=== PATIENT | female | born 2000 | race Two or more races ===

== ENCOUNTER 2023-08-08 17:04 | Emergency (ER) | payer OTHER ==
[~2023-08-08] VITALS: Ht 165.1 cm; Wt 86.6 kg
[2023-08-08] MEDS ORDERED: OBSTETRIX ONE CAPSUL (17:44)
[2023-08-08 18:25] LABS: HEMATOCRIT 36.2 % (36.0-45.00); HEMOGLOBIN 12.2 g/dL (12.0-15.00); MEAN CELL VOLUME 89.3 fL (80.00-100.00); MEAN CORPUSCULAR HGB CONC 33.6 g/dl (32.0-36.0); PLATELET COUNT 241 K/uL (150-450); RED BLOOD COUNT 4.05 M/uL (4.00-6.00); RED CELL DISTRIBUTION WIDTH 13.9 % (11.5-14.5)
[2023-08-08 18:44] LABS: CALCIUM 9.1 mg/dL (8.5-10.1); CREATININE SERUM 0.56 mg/dL (0.55-1.02); GFR 135.37; POTASSIUM 3.69 mEq/L (3.5-5.1)
[2023-08-08 21:45] LABS: URINE APPEARANCE Clear; URINE BILIRRUBIN Negative (NEGATIVE); URINE BLOOD Negative; URINE COLOR Yellow; URINE GLUCOSE Negative (NEGATIVE); URINE LEUKOCYTE Moderate; URINE NITRATE Negative; URINE PROTEIN Negative (NEGATIVE); URINE UROBILINOGEN 0.2 E.U./dl
[2023-08-08 21:49] LABS: URINE BACTERIA 1049.4 uL (0.0-1933); URINE WBC 99.2 uL (0.0-23.2)
[2023-08-08 21:52] LABS: URINE RBC 0.1 uL (0.0-20.8)
[2023-08-08] MEDS ORDERED: DUI500 PO (22:23)
== END 2023-08-08 22:27 | disposition home or self-care (01) ==
LOC: ER 17:04
PROVIDERS: General Practice
DX: O23.42 Unspecified infection of urinary tract in pregnancy, second trimester (principal); N39.0 Urinary tract infection, site not specified; Z3A.18 18 weeks gestation of pregnancy; Z88.8 Allergy status to other drugs, medicaments and biological substances

== ENCOUNTER 2023-10-11 19:24 | Outpatient (CLI) | payer OTHER ==
[~2023-10-11 19:24] MED LIST: DUI500 PO; OBSTETRIX ONE CAPSUL
== END 2023-10-11 19:42 | disposition home or self-care (01) ==
LOC: OBS/DEL 19:24
PROVIDERS: ATTEND Obstetrics & Gynecology
DX: O26.892 Other specified pregnancy related conditions, second trimester (principal); R10.2 Pelvic and perineal pain; Z3A.26 26 weeks gestation of pregnancy; Z88.5 Allergy status to narcotic agent

== ENCOUNTER 2023-10-29 02:36 | Outpatient (CLI) | payer OTHER ==
[2023-10-29 03:03] LABS: URINE APPEARANCE Clear; URINE BILIRRUBIN Negative (NEGATIVE); URINE BLOOD Small; URINE COLOR Yellow; URINE GLUCOSE Negative (NEGATIVE); URINE LEUKOCYTE Small; URINE NITRATE Negative; URINE PROTEIN 30 (NEGATIVE)
[2023-10-29 03:04] LABS: HEMATOCRIT 34.4 % (36.0-45.00); HEMOGLOBIN 11.6 g/dL (12.0-15.00); MEAN CORPUSCULAR HEMOGLOBIN 30.2 pg (27.00-32.0); MEAN CORPUSCULAR HGB CONC 33.9 g/dl (32.0-36.0); PLATELET COUNT 235 K/uL (150-450); RED BLOOD COUNT 3.86 M/uL (4.00-6.00); RED CELL DISTRIBUTION WIDTH 12.9 % (11.5-14.5)
[2023-10-29 03:07] LABS: URINE EPITHELIAL CELLS 44.2 uL (0.0-38.8); URINE RBC 92.4 uL (0.0-20.8); URINE WBC 90.8 uL (0.0-23.2)
[2023-10-29] MEDS ORDERED: PRENATAL TABLE1 EAC1 PO (03:45)
[2023-10-29 03:47] LABS: ALBUMIN 2.9 gm/dL (3.4-5.0); BILIRUBIN TOTAL 0.21 mg/dL (0.3-1.2); CALCIUM 8.9 mg/dL (8.5-10.1); CREATININE SERUM 0.6 mg/dL (0.55-1.02); GFR 125.01; GLOBULINA 3.8 G/DL (2.4-3.5); POTASSIUM 3.77 mEq/L (3.5-5.1); TOTAL PROTEIN 6.7 gm/dL (6.4-8.2)
[2023-10-29 04:07] LABS: URINE MUCUS MODERATE
[2023-10-29] MEDS ORDERED: CEPHALEXIN500 MG PO (14:05)
== END 2023-10-29 15:43 | disposition home or self-care (01) ==
LOC: OBS/DEL 02:36
PROVIDERS: Specialist; ATTEND Obstetrics & Gynecology
DX: O23.43 Unspecified infection of urinary tract in pregnancy, third trimester (principal); N39.0 Urinary tract infection, site not specified; Z3A.29 29 weeks gestation of pregnancy

== ENCOUNTER 2023-11-23 12:47 | Emergency (ER) | payer OTHER ==
[~2023-11-23] VITALS: Ht 165.1 cm; Wt 98.0 kg
[~2023-11-23 12:47] MED LIST changes: +CEPHALEXIN500 MG PO; +PRENATAL TABLE1 EAC1 PO
[2023-11-23 16:24] LABS: HEMATOCRIT 34.1 % (36.0-45.00); HEMOGLOBIN 11.8 g/dL (12.0-15.00); MEAN CELL VOLUME 88.7 fL (80.00-100.00); MEAN CORPUSCULAR HEMOGLOBIN 30.6 pg (27.00-32.0); MEAN CORPUSCULAR HGB CONC 34.5 g/dl (32.0-36.0); PLATELET COUNT 166 K/uL (150-450); RED BLOOD COUNT 3.84 M/uL (4.00-6.00)
[2023-11-23 16:54] LABS: CREATININE SERUM 0.55 mg/dL (0.55-1.02); GFR 138.21; POTASSIUM 3.39 mEq/L (3.5-5.1)
== END 2023-11-23 18:22 | disposition designated cancer center or children's hospital (05) ==
LOC: ER 12:48
PROVIDERS: General Practice
DX: R68.89 Other general symptoms and signs (principal); R53.81 Other malaise; Z20.822 Contact with and (suspected) exposure to COVID-19; Z88.6 Allergy status to analgesic agent

== ENCOUNTER 2024-01-02 14:00 | Inpatient (IN) | payer OTHER ==
[~2024-01-02] VITALS: Ht 152.4 cm; Wt 3.2 kg
[2024-01-09] MEDS ORDERED: RINGERS SOLUTION,LACTATED 1,000 ML IV SCH (06:45)
[2024-01-09] MEDS ORDERED: MISOPROSTOL 50 MCG TABLET VAG ONE (08:15)
[2024-01-09 09:00] LABS: HEMATOCRIT 34.7 % (36.0-45.00); HEMOGLOBIN 12.2 g/dL (12.0-15.00); MEAN CELL VOLUME 87.5 fL (80.00-100.00); MEAN CORPUSCULAR HEMOGLOBIN 30.7 pg (27.00-32.0); MEAN CORPUSCULAR HGB CONC 35.1 g/dl (32.0-36.0); PLATELET COUNT 236 K/uL (150-450); RED BLOOD COUNT 3.96 M/uL (4.00-6.00); RED CELL DISTRIBUTION WIDTH 13.4 % (11.5-14.5)
[2024-01-09] MEDS ORDERED: AMPICILLIN SODIUM 2,000 MG VIAL IV ONE (09:00)
[2024-01-09 09:10] LABS: PH,URINE 6.5 (5.0-8.0); URINE APPEARANCE Cloudy; URINE BILIRRUBIN Negative (NEGATIVE); URINE BLOOD Negative; URINE COLOR Yellow; URINE GLUCOSE Negative (NEGATIVE); URINE LEUKOCYTE Large; URINE NITRATE Negative; URINE PROTEIN Negative (NEGATIVE)
[2024-01-09 09:11] LABS: URINE BACTERIA 4858.4 uL (0.0-1933); URINE WBC 523.5 uL (0.0-23.2)
[2024-01-09 09:20] LABS: INR < 0.93; PARTIAL THROMBOPLASTIN TIME 27.3 SECONDS (22.0-34.0); PROTHROMBIN TIME 9.5 SECONDS (9.0-11.5)
[2024-01-09 09:27] LABS: ALBUMIN 2.8 gm/dL (3.4-5.0); BILIRUBIN TOTAL 0.25 mg/dL (0.3-1.2); CALCIUM 9.3 mg/dL (8.5-10.1); CREATININE SERUM 0.54 mg/dL (0.55-1.02); GFR 141.17; GLOBULINA 4.3 G/DL (2.4-3.5); POTASSIUM 4.1 mEq/L (3.5-5.1); TOTAL PROTEIN 7.1 gm/dL (6.4-8.2)
[2024-01-09] MEDS ORDERED: AMPICILLIN SODIUM 1,000 MG VIAL IV SCH (12:00)
[2024-01-09] MEDS ORDERED: OXYTOCIN 500 ML IV ONE (14:45)
[2024-01-09] MEDS ORDERED: MEPERIDINE HCL 25 MG/ML AMPUL IV ONE (16:30)
[2024-01-09] MEDS ORDERED: PROMETHAZINE HCL 25 MG/ML AMPUL IV ONE (16:30)
[2024-01-09] MEDS ORDERED: CHLORHEXIDINE GLUCONATE 120 ML BOTTLE TOP ONE (20:19)
[2024-01-09] MEDS ORDERED: ERYTHROMYCIN BASE 1 GM TUBE OP ONE ×2 (20:20→22:45)
[2024-01-09] MEDS ORDERED: OXYTOCIN 20 UNITS/1000ML RL PIGGYBAG IV ONE (20:20)
[2024-01-09] MEDS ORDERED: CEFAZOLIN SODIUM 1,000 MG VIAL ONE (22:24)
[2024-01-09] MEDS ORDERED: TERBUTALINE SULFATE 1 MG/ML AMPUL ONE (22:25)
[2024-01-09] MEDS ORDERED: ERYTHROMYCIN BASE 3.5 GM OINT...G. OP ONE (22:29)
[2024-01-09] MEDS ORDERED: OXYTOCIN 10 UNITS/ML VIAL ONE (22:29)
[2024-01-09] MEDS ORDERED: OXYTOCIN 10 UNITS/ML VIAL IV ONE (22:45)
[2024-01-09] MEDS ORDERED: CEFAZOLIN SODIUM 1,000 MG VIAL IV ONE (22:45)
[2024-01-09] MEDS ORDERED: TERBUTALINE SULFATE 1 MG/ML AMPUL SUBCUTANEO ONE (22:45)
[2024-01-09] MEDS ORDERED: PROMETHAZINE HCL 25 MG/ML AMPUL IV PRN (23:45)
[2024-01-09] MEDS ORDERED: MEPERIDINE HCL/PF 50 MG/ML VIAL IV PRN (23:45)
[2024-01-09] MEDS ORDERED: OXYTOCIN 1,000 ML IV SCH (23:45)
[2024-01-09] MEDS ORDERED: ONDANSETRON HCL 2 MG/ML VIAL IV PRN (23:45)
[2024-01-09] MEDS ORDERED: METOCLOPRAMIDE HCL 5 MG/ML VIAL IV SCH (23:45)
[2024-01-10] MEDS ORDERED: KETOROLAC TROMETHAMINE 30 MG VIAL IV SCH
[2024-01-10] MEDS ORDERED: CEFOXITIN SODIUM 2,000 MG VIAL IV SCH (01:00)
[2024-01-10] MEDS ORDERED: AMPICILLIN SODIUM 1,000 MG VIAL ONE (02:46)
[2024-01-10 06:00] LABS: HEMATOCRIT 31.1 % (36.0-45.00); HEMOGLOBIN 10.9 g/dL (12.0-15.00); MEAN CELL VOLUME 86.9 fL (80.00-100.00); MEAN CORPUSCULAR HEMOGLOBIN 30.5 pg (27.00-32.0); MEAN CORPUSCULAR HGB CONC 35.1 g/dl (32.0-36.0); PLATELET COUNT 245 K/uL (150-450); RED BLOOD COUNT 3.58 M/uL (4.00-6.00); RED CELL DISTRIBUTION WIDTH 13.3 % (11.5-14.5)
[2024-01-10] MEDS ORDERED: DOCUSATE SODIUM 100MG CAP PO SCH (09:00)
[2024-01-10] MEDS ORDERED: SIMETHICONE 125 MG CAPSULE PO SCH (09:00)
[2024-01-10] MEDS ORDERED: IRON FUM,PS/FOLIC/BCOMP,C NO.9 1 CAP CAPSULE PO SCH (09:00)
[2024-01-10] MEDS ORDERED: ACETAMINOPHEN 500 MG GEL..CAP PO SCH (12:00)
[2024-01-10] MEDS ORDERED: IBUprofen 800 MG TABLET PO SCH (13:00)
[2024-01-12] MEDS ORDERED: IBU800 MG PO (08:18)
[2024-01-12] MEDS ORDERED: COLACE100 MG PO (08:18)
[2024-01-12] MEDS ORDERED: SIMETHICONE125 M1 PO (08:18)
== END 2024-01-12 12:38 | disposition home or self-care (01) | DRG 788 ==
LOC: LDR 01-09 06:33 → OB/GYN 01-09 14:00
PROVIDERS: ADMIT Obstetrics & Gynecology; ATTEND Obstetrics & Gynecology
PROC: 3E0P7VZ Introduction of Hormone into Female Reproductive, Via Natural or Artificial Opening (ICD-10-PCS; 2024-01-09)
PROC: 3E033VJ Introduction of Other Hormone into Peripheral Vein, Percutaneous Approach (ICD-10-PCS; 2024-01-09)
PROC: 4A1HXCZ Monitoring of Products of Conception, Cardiac Rate, External Approach (ICD-10-PCS; 2024-01-09)
PROC: 10D00Z1 Extraction of Products of Conception, Low, Open Approach (ICD-10-PCS; principal; 2024-01-09 22:00)
DX: O62.1 Secondary uterine inertia (principal); O99.824 Streptococcus B carrier state complicating childbirth; Z3A.39 39 weeks gestation of pregnancy; Z37.0 Single live birth; Z20.822 Contact with and (suspected) exposure to COVID-19